=== PATIENT | female | born 1960 | race Caucasian/White ===

== ENCOUNTER → 2024-01-03 12:15 | Outpatient (REF) | payer BC, MEDICARE, SELFPAY ==
[2024-01-03 12:52] LABS: % Basophils 0.9 % (0-2); % Immature Granulocytes 0.3 % (0-0.5); % Lymphocytes 25.8 % (20.5-51.1); % Monocytes 5.8 % (1.7-9.3); % Neutrophils 66.2 % (42.2-75.2); Absolute Basophils 0.1 10^3/uL (0-0.2); Absolute Eosinophils 0.1 10^3/uL (0-0.7); Absolute Lymphocytes 1.8 10^3/uL (1.2-3.4); Absolute Monocytes 0.4 10^3/uL (0.1-0.6); Absolute Neutrophils 4.6 10^3/uL (1.4-6.5); Hematocrit 41.8 % (37.0-47.0); Hemoglobin 13.3 g/dL (12.0-16.0); Mean Corp Hgb Conc. 31.8 g/dL (33.0-37.0); Mean Corpuscular Hgb 28.1 pg (27.0-31.0); Mean Corpuscular Volume 88.2 fL (81.0-99.0); Nucleated Red Blood Cells % 0 %; Platelet Count 259 10^3/uL (130-400); Red Blood Cell Count 4.74 10^6/uL (4.20-5.40); Red Cell Dist. Width 12.2 % (11.5-14.5); White Blood Cell Count 6.9 10^3/uL (4.8-10.8)
[2024-01-03 13:22] LABS: ALT (SGPT) 41 U/L (0-35); AST (SGOT) 44 U/L (14-36); Alkaline Phosphatase 75 U/L (38-126); Blood Urea Nitrogen 11 mg/dl (7-17); Calcium 9.4 mg/dl (8.4-10.2); Carbon Dioxide 27 mmol/L (22-30); Chloride 102 mmol/L (98-107); Glucose 203 mg/dl (70-99); Potassium 3.8 mmol/L (3.5-5.1); Sodium 136 mmol/L (135-145); Total Bilirubin 1.7 mg/dl (0.2-1.3); Total Protein 6.2 g/dl (6.3-8.2); eGFR > 60.00
[2024-01-03 14:10] LABS: Glycohemoglobin (HgbA1c) 8.7 % (4.0-5.6)
[2024-01-03 14:20] LABS: Erythrocyte Sed Rate 19 mm/hour (0-20)
[2024-01-03 14:30] LABS: Vitamin D, 25-OH*** 23.1 ng/mL (30-80)
[2024-01-05 00:39] LABS: Complement C3 171 mg/dl (88-165)
[2024-01-05 07:23] LABS: ANA, IgG Reflex to HEp-2 None Detected (None Detected)
[2024-01-05 23:51] LABS: Quantiferon Mitogen minus NIL 8.15 IU/mL; Quantiferon NIL 0.02 IU/mL; Quantiferon TB Gold Plus Negative (Negative)
[2024-01-06 10:34] LABS: SSA 52 (Ro)(ENA) Ab, IgG 1 AU/mL (0-40); SSA 60 (Ro)(ENA) Ab, IgG 0 AU/mL (0-40); SSB (La)(ENA) Ab, IgG 0 AU/mL (0-40); Smith (ENA) Antibody, IgG 1 AU/mL (0-40)
== END ==
LOC: REG 12:15
PROVIDERS: ATTENDING PHYSICIAN Internal Medicine Rheumatology; FAMILY PHYSICIAN Family Medicine; REFERRING PHYSICIAN Internal Medicine Endocrinology, Diabetes & Metabolism
DX: M06.9 Rheumatoid arthritis, unspecified (principal); M32.9 Systemic lupus erythematosus, unspecified; M47.812 Spondylosis without myelopathy or radiculopathy, cervical region; E11.65 Type 2 diabetes mellitus with hyperglycemia
CPT/HCPCS: 36415; 80053; 82306; 83036; 85025; 85652; 86038; 86140; 86160; 86235; 86480

== ENCOUNTER → 2024-01-04 10:56 | Outpatient (REF) | payer BC, MEDICARE, SELFPAY ==
[2024-01-04 11:28] LABS: Urine Albumin Negative (Neg - Trace); Urine Bilirubin Negative (Negative); Urine Character Clear (Clear); Urine Color Yellow; Urine Glucose 1+ (Negative); Urine Ketone Negative (Negative); Urine Leukocyte Negative (Negative); Urine Nitrite Negative (Negative); Urine Occult Blood Negative (Negative); Urine Specific Gravity 1.015 (<1.030); Urine Urobilinogen Negative (Neg - 1+)
[2024-01-04 11:44] LABS: Urine Red Blood Cell 0-2 /HPF (0-2); Urine White Cell 0-2 /HPF (0-5)
== END ==
LOC: REG 10:56
PROVIDERS: ATTENDING PHYSICIAN Internal Medicine Rheumatology; FAMILY PHYSICIAN Family Medicine
DX: M06.9 Rheumatoid arthritis, unspecified (principal); M32.9 Systemic lupus erythematosus, unspecified; M47.812 Spondylosis without myelopathy or radiculopathy, cervical region
CPT/HCPCS: 81003; 81015

== ENCOUNTER → 2024-02-08 09:32 | Outpatient (REF) | payer BC, SELFPAY ==
[2024-02-08 11:13] LABS: ALT (SGPT) 50 U/L (0-35); AST (SGOT) 42 U/L (14-36); Albumin 4.4 g/dl (3.5-5.0); Alkaline Phosphatase 72 U/L (38-126); Blood Urea Nitrogen 8 mg/dl (7-17); Calcium 9.8 mg/dl (8.4-10.2); Carbon Dioxide 25 mmol/L (22-30); Chloride 104 mmol/L (98-107); Glucose 230 mg/dl (70-99); HDL Cholesterol 48 mg/dl; LDL Cholesterol, Calculated 124 mg/dl; Potassium 4.1 mmol/L (3.5-5.1); Sodium 139 mmol/L (135-145); Total Bilirubin 1.4 mg/dl (0.2-1.3); Total Cholesterol 213 mg/dl (50-199); Total Protein 6.7 g/dl (6.3-8.2); Triglyceride 208 mg/dl (10-149); Very Low Density Lipoprotein 41 mg/dl (0-30); eGFR > 60.00
[2024-02-08 11:42] LABS: TSH 0.94 uIU/ml (0.47-4.68)
[2024-02-08 12:15] LABS: Glycohemoglobin (HgbA1c) 8.5 % (4.0-5.6)
== END ==
LOC: REG 09:32
PROVIDERS: ATTENDING PHYSICIAN Family Medicine; REFERRING PHYSICIAN Internal Medicine Endocrinology, Diabetes & Metabolism
DX: E78.2 Mixed hyperlipidemia (principal); Z00.00 Encounter for general adult medical examination without abnormal findings; E11.65 Type 2 diabetes mellitus with hyperglycemia
CPT/HCPCS: 36415; 80053; 80061; 83036; 84443

== ENCOUNTER → 2024-04-19 14:45 | Outpatient (REF) | payer BC, SELFPAY ==
[2024-04-19 16:46] LABS: ALT (SGPT) 37 U/L (0-35); AST (SGOT) 31 U/L (14-36); Albumin 4.5 g/dl (3.5-5.0); Alkaline Phosphatase 90 U/L (38-126); Blood Urea Nitrogen 11 mg/dl (7-17); Calcium 9.7 mg/dl (8.4-10.2); Carbon Dioxide 26 mmol/L (22-30); Chloride 102 mmol/L (98-107); Glucose 202 mg/dl (70-99); Potassium 4.4 mmol/L (3.5-5.1); Sodium 139 mmol/L (135-145); Total Bilirubin 1.7 mg/dl (0.2-1.3); Total Protein 6.9 g/dl (6.3-8.2); eGFR > 60.00
[2024-04-20 09:45] LABS: Glycohemoglobin (HgbA1c) 8.3 % (4.0-5.6)
== END ==
LOC: REG 14:45
PROVIDERS: ATTENDING PHYSICIAN Internal Medicine Endocrinology, Diabetes & Metabolism; FAMILY PHYSICIAN Family Medicine
DX: E11.65 Type 2 diabetes mellitus with hyperglycemia (principal)
CPT/HCPCS: 36415; 80053; 83036

== ENCOUNTER → 2024-05-25 12:29 | Outpatient (REF) | payer MEDICARE, OTHER, SELFPAY ==
[2024-05-25 13:54] LABS: % Basophils 0.5 % (0-2); % Eosinophils 0.9 % (0-6); % Immature Granulocytes 0.4 % (0-0.5); % Lymphocytes 23.4 % (20.5-51.1); % Monocytes 4.4 % (1.7-9.3); % Neutrophils 70.4 % (42.2-75.2); Absolute Eosinophils 0.1 10^3/uL (0-0.7); Absolute Lymphocytes 1.9 10^3/uL (1.2-3.4); Absolute Monocytes 0.4 10^3/uL (0.1-0.6); Absolute Neutrophils 5.6 10^3/uL (1.4-6.5); Hematocrit 42.8 % (37.0-47.0); Mean Corp Hgb Conc. 32.7 g/dL (33.0-37.0); Mean Corpuscular Hgb 26.9 pg (27.0-31.0); Mean Corpuscular Volume 82.3 fL (81.0-99.0); Mean Platelet Volume 9.7 fL (7.4-10.4); Nucleated Red Blood Cells % 0 %; Platelet Count 309 10^3/uL (130-400); Red Cell Dist. Width 13.2 % (11.5-14.5); White Blood Cell Count 7.9 10^3/uL (4.8-10.8)
[2024-05-25 14:14] LABS: Erythrocyte Sed Rate 16 mm/hour (0-20)
[2024-05-25 14:27] LABS: Glycohemoglobin (HgbA1c) 8.2 % (4.0-5.6)
[2024-05-25 14:43] LABS: ALT (SGPT) 36 U/L (0-35); AST (SGOT) 31 U/L (14-36); Albumin 4.4 g/dl (3.5-5.0); Alkaline Phosphatase 84 U/L (38-126); Blood Urea Nitrogen 9 mg/dl (7-17); Calcium 9.5 mg/dl (8.4-10.2); Carbon Dioxide 25 mmol/L (22-30); Chloride 103 mmol/L (98-107); Glucose 193 mg/dl (70-99); Potassium 4.4 mmol/L (3.5-5.1); Sodium 139 mmol/L (135-145); Total Bilirubin 1.4 mg/dl (0.2-1.3); Total Protein 6.7 g/dl (6.3-8.2); eGFR > 60.00
[2024-05-27 23:01] LABS: Complement C3 201 mg/dl (88-165)
[2024-05-28 00:28] LABS: CCP Antibody IgG/IgA 4 Units (0-19)
== END ==
LOC: REG 12:29
PROVIDERS: ATTENDING PHYSICIAN Physician Assistant Surgical; FAMILY PHYSICIAN Family Medicine; REFERRING PHYSICIAN Internal Medicine Rheumatology
DX: M54.12 Radiculopathy, cervical region (principal); M54.2 Cervicalgia; I31.39 Other pericardial effusion (noninflammatory); M08.20 Juvenile rheumatoid arthritis with systemic onset, unspecified site; M32.9 Systemic lupus erythematosus, unspecified; E11.9 Type 2 diabetes mellitus without complications
CPT/HCPCS: 36415; 80053; 83036; 85025; 85652; 86140; 86146; 86160; 86200; 86225; 86235; 86430

== ENCOUNTER → 2024-07-30 15:48 | Outpatient (REF) | payer MEDICARE, OTHER, SELFPAY ==
[2024-07-30 16:24] LABS: % Basophils 0.5 % (0-2); % Eosinophils 0.7 % (0-6); % Immature Granulocytes 0.2 % (0-0.5); % Lymphocytes 25.3 % (20.5-51.1); % Monocytes 5.4 % (1.7-9.3); % Neutrophils 67.9 % (42.2-75.2); Absolute Eosinophils 0.1 10^3/uL (0-0.7); Absolute Lymphocytes 2.2 10^3/uL (1.2-3.4); Absolute Monocytes 0.5 10^3/uL (0.1-0.6); Absolute Neutrophils 5.8 10^3/uL (1.4-6.5); Hematocrit 47.9 % (37.0-47.0); Hemoglobin 15.3 g/dL (12.0-16.0); Mean Corp Hgb Conc. 31.9 g/dL (33.0-37.0); Mean Corpuscular Hgb 27.5 pg (27.0-31.0); Mean Corpuscular Volume 86.2 fL (81.0-99.0); Mean Platelet Volume 10.1 fL (7.4-10.4); Nucleated Red Blood Cells % 0 %; Platelet Count 360 10^3/uL (130-400); Red Blood Cell Count 5.56 10^6/uL (4.20-5.40); Red Cell Dist. Width 12.6 % (11.5-14.5); White Blood Cell Count 8.5 10^3/uL (4.8-10.8)
[2024-07-30 16:27] LABS: ALT (SGPT) 30 U/L (0-35); AST (SGOT) 28 U/L (14-36); Albumin 4.8 g/dl (3.5-5.0); Alkaline Phosphatase 85 U/L (38-126); Blood Urea Nitrogen 13 mg/dl (7-17); Calcium 9.5 mg/dl (8.4-10.2); Carbon Dioxide 25 mmol/L (22-30); Chloride 101 mmol/L (98-107); Glucose 214 mg/dl (70-99); Potassium 4.5 mmol/L (3.5-5.1); Sodium 142 mmol/L (135-145); Total Bilirubin 1.3 mg/dl (0.2-1.3); Total Protein 7.5 g/dl (6.3-8.2); eGFR > 60.00
[2024-07-31 08:38] LABS: Glycohemoglobin (HgbA1c) 7.7 % (4.0-5.6)
== END ==
LOC: CLAB 15:48
PROVIDERS: ATTENDING PHYSICIAN Physician Assistant Medical
DX: E11.65 Type 2 diabetes mellitus with hyperglycemia (principal)
CPT/HCPCS: 36415; 80053; 83036; 85025

== ENCOUNTER → 2024-08-15 07:24 | Outpatient (REF) | payer MEDICARE, BC, SELFPAY ==
[2024-08-15] MEDS: LEXISCAN 0.4 MG IV (09:36)
[2024-08-15] MEDS: FLUSH (NSS) 1 FLUSH IV (09:37)
[2024-08-15] MEDS: AMINOPHYLLINE 75 MG IV (09:37)
== END ==
LOC: RCS 07:24
PROVIDERS: ATTENDING PHYSICIAN Internal Medicine Cardiovascular Disease; FAMILY PHYSICIAN Family Medicine
DX: R07.89 Other chest pain (principal)
CPT/HCPCS: 78452; 93017; A9500; J2785

== ENCOUNTER → 2024-08-16 10:30 | Outpatient (REF) | payer MEDICARE, BC, SELFPAY | LOC: HWRCS 10:30 | PROVIDERS: ATTENDING PHYSICIAN Internal Medicine Cardiovascular Disease; FAMILY PHYSICIAN Family Medicine | DX: R06.02 Shortness of breath (principal) | CPT/HCPCS: 93306 ==

== ENCOUNTER 2024-08-22 06:01 | Inpatient (IN) | payer MEDICARE, BC, SELFPAY ==
[2024-08-08 10:51] LABS: Hematocrit 42.6 % (37.0-47.0); Hemoglobin 13.7 g/dL (12.0-16.0); Mean Corp Hgb Conc. 32.2 g/dL (33.0-37.0); Mean Corpuscular Hgb 27.3 pg (27.0-31.0); Mean Platelet Volume 9.6 fL (7.4-10.4); Platelet Count 285 10^3/uL (130-400); Red Blood Cell Count 5.01 10^6/uL (4.20-5.40); Red Cell Dist. Width 12.6 % (11.5-14.5); White Blood Cell Count 6.5 10^3/uL (4.8-10.8)
[2024-08-08 11:32] LABS: ALT (SGPT) 29 U/L (0-35); AST (SGOT) 23 U/L (14-36); Albumin 4.2 g/dl (3.5-5.0); Alkaline Phosphatase 65 U/L (38-126); Blood Urea Nitrogen 11 mg/dl (7-17); Calcium 9.2 mg/dl (8.4-10.2); Carbon Dioxide 27 mmol/L (22-30); Chloride 103 mmol/L (98-107); Glucose 186 mg/dl (70-99); Potassium 4.3 mmol/L (3.5-5.1); Sodium 140 mmol/L (135-145); Total Bilirubin 0.9 mg/dl (0.2-1.3); Total Protein 6.4 g/dl (6.3-8.2); eGFR > 60.00
[2024-08-08 13:54] VITALS: BMI 38.8
[2024-08-15 11:06] VITALS: BMI 38.8
[2024-08-22] VITALS (22 sets, daily range): BP systolic 134–161; BP diastolic 61–100; PULSE 81–88; O2SAT 98; BMI 38.8
--- NOTE | 2024-08-22 06:30 | PTCARENOTE ---
Patient states that she attempted suicide at 17 years old. Patient states she is feeling slightly depressed recently but no thoughts of suicide currently.
[2024-08-22] MEDS: SKELAXIN 800 MG PO ×3 (06:43→23:26)
[2024-08-22] MEDS: CELEBREX 200 MG PO (06:43)
[2024-08-22] MEDS: LYRICA 150 MG PO ×3 (06:43→21:05)
[2024-08-22] MEDS: TYLENOL 1000 MG PO ×4 (06:43→23:26)
[2024-08-22 06:46] LABS: Glucose - Point of Care 219 mg/dl (70-99)
[2024-08-22] MEDS: NORMOSOL-R/PLASMALYTE-A 1000 IV ×3 (07:08→23:31)
[2024-08-22 09:46] LABS: Glucose - Point of Care 235 mg/dl (70-99)
[2024-08-22] MEDS: NOVOLOG vial 2 UNITS SC (09:49)
[2024-08-22] MEDS: SUBLIMAZE 25 MCG IV ×2 (10:00→10:32)
[2024-08-22] MEDS: ZOFRAN 4 MG IV (10:29)
[2024-08-22 11:16] LABS: Glucose - Point of Care 266 mg/dl (70-99)
[2024-08-22] MEDS: OXYCONTIN (CONTROLLED RELEASE) 10 MG PO ×2 (11:34→23:26)
[2024-08-22] MEDS: NOVOLOG FLEXPEN SC (13:00)
[2024-08-22] MEDS: NOVOLOG FLEXPEN-MODERATE RESISTANCE SC (13:01)
[2024-08-22] MEDS: PEPCID PO (13:01)
[2024-08-22] MEDS: LYRICA PO (13:01)
[2024-08-22] MEDS: COLACE PO (13:01)
[2024-08-22] MEDS: SENOKOT PO (13:02)
[2024-08-22 13:09] LABS: Glucose - Point of Care 274 mg/dl (70-99)
[2024-08-22] MEDS: NOVOLOG FLEXPEN-MODERATE RESISTANCE 3 UNITS SC (13:32)
[2024-08-22] MEDS: NOVOLOG FLEXPEN 4 UNITS SC ×2 (13:33→16:43)
[2024-08-22] MEDS: LANTUS 0.22 UNITS SC (13:34)
[2024-08-22] MEDS: ANCEF 5 IV ×2 (16:29→23:26)
[2024-08-22] MEDS: FLUSH (NSS) 1 FLUSH IV (16:29)
[2024-08-22 16:44] LABS: Glucose - Point of Care 334 mg/dl (70-99)
[2024-08-22] MEDS: NOVOLOG FLEXPEN-MODERATE RESISTANCE 7 UNITS SC (16:44)
[2024-08-22] MEDS: ROXICODONE 10 MG PO (19:27)
[2024-08-22] MEDS: COLACE 100 MG PO (19:30)
[2024-08-22] MEDS: SENOKOT 17.2 MG PO (19:31)
[2024-08-22] MEDS: CARDIZEM 60 MG PO (21:05)
[2024-08-22] MEDS: ARMOUR THYROID 60 MG PO (21:05)
[2024-08-22 21:57] LABS: Glucose - Point of Care 307 mg/dl (70-99)
[2024-08-23] MEDS: ROXICODONE 10 MG PO (03:49)
[2024-08-23 03:51] VITALS: BP 129/66
--- NOTE | 2024-08-23 04:19 | DOWNTIME ---
There was a [employer] Client Family Assessment Worker Downtime on 08/23/2024 from 0200 to 08/23/2024 at 0325 . Downtime documentation of patient's care, including medication administrations, has been reconciled in the electronic record per guidelines. Refer to the
patient's paper chart under the miscellaneous tab to see printed paper medication records and downtime forms.
[2024-08-23 06:22] LABS: Hematocrit 39.9 % (37.0-47.0); Hemoglobin 12.5 g/dL (12.0-16.0)
[2024-08-23 06:51] LABS: Blood Urea Nitrogen 10 mg/dl (7-17); Calcium 8.3 mg/dl (8.4-10.2); Carbon Dioxide 23 mmol/L (22-30); Chloride 103 mmol/L (98-107); Estimated Creatinine Clearance 116 ml/min; Glucose 246 mg/dl (70-99); Potassium 4.6 mmol/L (3.5-5.1); Sodium 136 mmol/L (135-145); eGFR > 60.00
[2024-08-23] MEDS: SKELAXIN 800 MG PO (08:06)
[2024-08-23] MEDS: COLACE 100 MG PO (08:07)
[2024-08-23] MEDS: LYRICA 150 MG PO (08:07)
[2024-08-23] MEDS: PEPCID 40 MG PO (08:07)
[2024-08-23] MEDS: TYLENOL 1000 MG PO (08:07)
[2024-08-23] MEDS: SENOKOT 17.2 MG PO (08:08)
--- NOTE | 2024-08-23 08:08 | W.PN.ORTHO ---
Today's Communication / Plan
-
Await PT and OT recs.
D/c later today if remaining clinically stable.
Assessment
.
Distal Motor Intact: Yes
Dressing:
Clean, dry and intact.
Assessment:
Cervical stenosis s/p C4-C6 ACDF w/ Dr Olsen 08/22/24
DVT prophylaxis - b/l SCDs/TEDs
SVT, managed with Diltiazem - maintaining NSR on tele
Atypical CP, preprocedural echo and NST WNL - no CP reported POD 1
Asthma and TERRELL, noncompliance w/ CPAP - O2 stable on RA
- Resume inhaler prn
- Pt agreeable to CPAP last night. Applauded pt for reconsidering CPAP. She states she will try her best to be compliant w/ it at home
Insulin dependent diabetes, A1c 7.7 - BS readings initially elevated 2* surgical stress, IV steroids in OR, and holding of Mounjaro w/n 1 week of surgery
- BS readings showing improvement w/ standing 6 units AC of novolog, SSI, and increase in long acting insulin during admission
- I have confidence her BS readings will improve further w/ resumption of Mounjaro which she plans to resume upon d/c. The patient has been an insulin dependent diabetic since 2008 and follows her sugars b/f every meal. Is aware to talk to PCP
should BS readings continue to be elevated
- Will Rx Keflex for infection prevention
GERD - continue Pepcid
Chronic constipation - continue Dulcolax prn w/ Colace and Senna
Multilevel DDD
Dyslipidemia
H/o pericarditis, on Colchicine
Colon polyps
NAFLD
Migraines
Bal difficulties
DJD
RA
SLE
Hypothyroidism
Psoriasis
Spina bifida s/p surgical correction in infancy
Anxiety
Depression
Obesity, BMI 38.8
Plan
.
Surgery / Date: C4-C6 ACDF w/ Dr Olsen 08/22/24
DVT Prophylaxis: Other (b/l SCDs/TEDs)
Activity:
Out of bed.
PT/OT
Discharge Plan: Home
Subjective
.
.:
Patient examined resting in bed.
Issues with neck pain overnight, showing improvement with medication adjustments. Pt just medicated prior to my assessment.
Mild nausea but tolerable per pt.
Glucose elevated but not unexpected given holding of Mounjaro pre-op.
Eager for potential d/c today.
Vital Signs and Labs
.
Vital Signs and Labs:
Lab Results
08/23/24 05:30
08/23/24 05:30
Temp Pulse Resp BP Pulse Ox
98.3 F 74 20 129/66 94
08/23/24 03:51 08/23/24 03:51 08/23/24 03:51 08/23/24 03:51 08/23/24 03:51
Physical Exam
-
HEENT: No pallor, cyanosis, or jaundice. Throat clear.
NECK: Supple. No JVD.
RESPIRATORY: Lungs clear to auscultation.
CVS: S1, S2 normal. RRR.�
ABDOMEN: Soft, non-tender. No distension. Obese.
EXTREMITIES: Strength equal, no calf pain with palpation/dorsiflexion. Calves soft.
BOARD DESIGN ENGINEER: AOx3. No focal deficits. digital cartographic technician grossly intact
[2024-08-23 08:12] LABS: Glucose - Point of Care 234 mg/dl (70-99)
[2024-08-23 08:14] VITALS: BP 108/73
[2024-08-23] MEDS: NOVOLOG FLEXPEN-MODERATE RESISTANCE 3 UNITS SC (08:17)
[2024-08-23] MEDS: NORMOSOL-R/PLASMALYTE-A 1000 IV (08:24)
[2024-08-23] MEDS: NOVOLOG FLEXPEN SC (09:09)
[2024-08-23 10:11] VITALS: BP 154/76; PULSE 73; O2SAT 98
--- NOTE | 2024-08-23 10:38 | CM ---
Reviewed the chart notes and spoke with the patient and spouse at the bedside. Consult for VN received. Patient selected VN, referral sent via [facility]. Patient resides with her spouse in a two story home with two steps to enter. The patient
has a CPAP, stair glide, crutches, cane, and a rolling walker. The patient has had VN in past, but could not recall the name of the agency. The patient reports no SNF. The patient confirmed her pharmacy of choice is the [facility].
Frank. continues to be available to patient/family and is monitoring medical plan for needs at discharge.
Plan: Discharge to home with VN services.
[2024-08-23 11:44] VITALS: BP 143/70; PULSE 73; O2SAT 98
--- NOTE | 2024-08-23 11:55 | W.DS.TRANS ---
DC Summary - Marketing Reporting Analyst
-
Discharge Instructions:
Discharge Diagnosis/Procedures Cervical stenosis s/p C4-C6 ACDF w/ Olsen
08/05
Diet Diabetic, Carb Controlled
Activity As tolerated,With Walker
Additional Activity No heavy lifting >10 lbs
Driving Restrictions Not until seen by your Dr
Bathing Restrictions OK to shower in 4 days
Other Services VN
Instructions:
Stand-Alone Forms: Olsen Cervical D/C Inst.
Changes to Home Medications: Yes
Discharge Medications:
DC Medications w/original date entered in [facility]
cyanocobalamin (vitamin B-12) 1,000 mcg tablet 1,000 mcg PO DAILY 02/25/15
pyridoxine (vitamin B6) 50 mg tablet 50 mg PO DAILY 06/30/17
diltiazem HCl 60 mg tablet 60 mg PO BIDPRN PRN fast heart rate 09/05/18
cholecalciferol (vitamin D3) 50 mcg (2,000 unit) tablet 5,000 units PO DAILY 01/01/19
thyroid (pork) 60 mg tablet ([place] Thyroid) 60 mg PO HS 01/01/19
vitamin E (dl, acetate) 180 mg (400 unit) capsule 400 units PO BID 01/01/19
Cbd With Thc 1 gummy PO HS PRN sleep 11/11/23
famotidine 40 mg tablet 40 mg PO DAILY 11/11/23
pregabalin 50 mg capsule (Lyrica) 100 mg PO TID 11/11/23
Refresh Plus 1 drp BOTH EYES BID 08/15/24
albuterol sulfate 90 mcg/actuation aerosol inhaler 2 puff inhalation Q4HPRN PRN SHORTNESS OF BREATH 08/15/24
bisacodyl 10 mg rectal suppository (Dulcolax (bisacodyl)) 10 mg DC DAILY PRN constipation 08/15/24
dexamethasone 0.1 % eye drops,suspension 1 applic otic (ear) ONCE PRN pain 08/15/24
tirzepatide 7.5 mg/0.5 mL subcutaneous pen injector (Mounjaro) 7.5 mg SC QWEEK 08/15/24
Saccharomyces boulardii 250 mg capsule (Florastor) 250 mg PO BID #10 caps 08/23/24
acetaminophen 500 mg tablet (Tylenol Extra Strength) 1,000 mg (2 x 500 mg) PO QID #30 tabs 08/23/24
baclofen 5 mg tablet 5 mg PO BID PRN muscle spasms #10 tabs 08/23/24
cephalexin 500 mg capsule 500 mg PO Q6H #20 caps 08/23/24
colchicine 0.6 mg tablet (Colcrys) 0.6 mg PO DAILY PRN pericarditis #0 tabs 08/23/24
diltiazem HCl 60 mg tablet 60 mg PO HS #1 tab 08/23/24
docusate sodium 100 mg capsule 100 mg PO BID #30 caps 08/23/24
insulin glargine-yfgn 100 unit/mL (3 mL) subcutaneous pen (Semglee (insulin glargine-yfgn) Pen) 22 unit (0.22 mL) SC QPM #0 mL 08/23/24
insulin lispro 100 unit/mL subcutaneous cartridge (Humalog U-100 Insulin) 1 sliding scale dose SC DIRECTED PRN diabetes #0 mL 08/23/24
ondansetron HCl 4 mg tablet 4 mg PO Q6H PRN nausea and vomiting #30 tabs 08/23/24
oxycodone 10 mg tablet,crush resistant,extended release 12 hr (OxyContin) 10 mg PO Q12H chronic pain #15 tabs 08/23/24
oxycodone 5 mg tablet 5 - 10 mg (1 - 2 x 5 mg) PO Q6H PRN moderate-severe breakthrough pain #25 tabs 08/23/24
sennosides 8.6 mg tablet (Senna Laxative) 17.2 mg (2 x 8.6 mg) PO BID #30 tabs 08/23/24
Home Medication Changes
Saccharomyces boulardii 250 mg capsule (Florastor) 250 mg PO BID #10 caps 08/23/24
acetaminophen 500 mg tablet (Tylenol Extra Strength) 1,000 mg (2 x 500 mg) PO QID #30 tabs 08/23/24
baclofen 5 mg tablet 5 mg PO BID PRN muscle spasms #10 tabs 08/23/24
cephalexin 500 mg capsule 500 mg PO Q6H #20 caps 08/23/24
docusate sodium 100 mg capsule 100 mg PO BID #30 caps 08/23/24
insulin glargine-yfgn 100 unit/mL (3 mL) subcutaneous pen (Semglee (insulin glargine-yfgn) Pen) 22 unit (0.22 mL) SC QPM #0 mL 08/23/24 - increased from 15 units
insulin lispro 100 unit/mL subcutaneous cartridge (Humalog U-100 Insulin) 1 sliding scale dose SC DIRECTED PRN diabetes #0 mL 08/23/24
ondansetron HCl 4 mg tablet 4 mg PO Q6H PRN nausea and vomiting #30 tabs 08/23/24
oxycodone 10 mg tablet,crush resistant,extended release 12 hr (OxyContin) 10 mg PO Q12H chronic pain #15 tabs 08/23/24
oxycodone 5 mg tablet 5 - 10 mg (1 - 2 x 5 mg) PO Q6H PRN moderate-severe breakthrough pain #25 tabs 08/23/24
sennosides 8.6 mg tablet (Senna Laxative) 17.2 mg (2 x 8.6 mg) PO BID #30 tabs 08/23/24
Pending Results: No
[2024-08-23 12:09] LABS: Glucose - Point of Care 258 mg/dl (70-99)
--- NOTE | 2024-08-23 12:13 | VNURNOTE ---
Home Health Liaison met with patient and spouse at bedside to discuss [facility] nurse/therapy, visits, schedule and homebound status. Both are agreeable and understand that visits at home will be 2-3 x per week to assess and teach medical management.
[facility] brochure provided with contact information. Patient is aware that [facility] will contact them for start of care in 1-2 days after discharge from .
[facility] referral completed in [facility].
[2024-08-23] MEDS: OXYCONTIN (CONTROLLED RELEASE) 10 MG PO (12:15)
[2024-08-23] MEDS: NOVOLOG FLEXPEN 6 UNITS SC (12:16)
[2024-08-23] MEDS: NOVOLOG FLEXPEN-MODERATE RESISTANCE 5 UNITS SC (12:16)
== END 2024-08-23 13:42 | disposition home health service (06) | DRG 472 ==
LOC: 2 SOUTH 06:01
PROVIDERS: Physician Assistant Medical; ADMITTING PHYSICIAN Orthopaedic Surgery Orthopaedic Surgery of the Spine; FAMILY PHYSICIAN Family Medicine
PROC: 0RG20A0 Fusion of 2 or more Cervical Vertebral Joints with Interbody Fusion Device, Anterior Approach, Anterior Column, Open Approach (ICD-10-PCS; 2024-08-22)
PROC: 0RT30ZZ Resection of Cervical Vertebral Disc, Open Approach (ICD-10-PCS; 2024-08-22)
PROC: 00NW0ZZ Release Cervical Spinal Cord, Open Approach (ICD-10-PCS; 2024-08-22)
DX: M48.02 Spinal stenosis, cervical region (principal); I47.10 Supraventricular tachycardia, unspecified; M54.12 Radiculopathy, cervical region; E11.65 Type 2 diabetes mellitus with hyperglycemia; M32.10 Systemic lupus erythematosus, organ or system involvement unspecified; K76.0 Fatty (change of) liver, not elsewhere classified; K21.9 Gastro-esophageal reflux disease without esophagitis; I48.0 Paroxysmal atrial fibrillation; E03.9 Hypothyroidism, unspecified; G47.33 Obstructive sleep apnea (adult) (pediatric); Z79.4 Long term (current) use of insulin; Z79.85 Long-term (current) use of injectable non-insulin antidiabetic drugs; J45.909 Unspecified asthma, uncomplicated; K59.09 Other constipation; Z91.199 Patient's noncompliance with other medical treatment and regimen due to unspecified reason
CPT/HCPCS: 36415; 72020; 80048; 80053; 82962; 85014; 85018; 85027; 87070; 94660; 97116; 97162; 97166; 97530; C1713

== ENCOUNTER 2024-11-01 16:21 | Emergency (ER) | payer MEDICARE, BC, SELFPAY ==
[2024-11-01 16:32] VITALS: BMI 38.6
[2024-11-01 17:00] LABS: % Basophils 0.7 % (0-2); % Eosinophils 0.9 % (0-6); % Immature Granulocytes 0.3 % (0-0.5); % Lymphocytes 32.7 % (20.5-51.1); % Monocytes 6.4 % (1.7-9.3); Absolute Basophils 0.1 10^3/uL (0-0.2); Absolute Eosinophils 0.1 10^3/uL (0-0.7); Absolute Lymphocytes 3.8 10^3/uL (1.2-3.4); Absolute Monocytes 0.7 10^3/uL (0.1-0.6); Absolute Neutrophils 6.9 10^3/uL (1.4-6.5); Hematocrit 48.7 % (37.0-47.0); Hemoglobin 16.2 g/dL (12.0-16.0); Mean Corp Hgb Conc. 33.3 g/dL (33.0-37.0); Mean Corpuscular Hgb 27.7 pg (27.0-31.0); Mean Corpuscular Volume 83.2 fL (81.0-99.0); Mean Platelet Volume 10.1 fL (7.4-10.4); Nucleated Red Blood Cells % 0 %; Platelet Count 426 10^3/uL (130-400); Red Blood Cell Count 5.85 10^6/uL (4.20-5.40); Red Cell Dist. Width 13.3 % (11.5-14.5); White Blood Cell Count 11.6 10^3/uL (4.8-10.8)
[2024-11-01 17:26] LABS: ALT (SGPT) 66 U/L (0-35); AST (SGOT) 42 U/L (14-36); Albumin 5.2 g/dl (3.5-5.0); Alkaline Phosphatase 92 U/L (38-126); Blood Urea Nitrogen 11 mg/dl (7-17); Calcium 10.2 mg/dl (8.4-10.2); Carbon Dioxide 24 mmol/L (22-30); Chloride 99 mmol/L (98-107); Estimated Creatinine Clearance 96 ml/min; Glucose 168 mg/dl (70-99); Magnesium 2.2 mg/dl (1.6-2.3); Potassium 4.1 mmol/L (3.5-5.1); Sodium 137 mmol/L (135-145); Total Bilirubin 1.6 mg/dl (0.2-1.3); Total Protein 7.7 g/dl (6.3-8.2); eGFR > 60.00
[2024-11-01 17:30] VITALS: BP 109/78
[2024-11-01 17:33] LABS: D-Dimer 0.75 ug/mlFEU (0.00-0.50)
[2024-11-01 17:43] LABS: Troponin I < 0.012 ng/ml
[2024-11-01 18:00] VITALS: BP 118/76
--- NOTE | 2024-11-01 18:27 | ED.GENMED ---
History of Present Illness
General
Chief Complaint: Breathing Problem
Source: patient
Exam Limitations: none
Time Seen by Provider: 11/01/24 16:44
Nursing documentation reviewed up to this point in time: agreed with
History of Present Illness
History of Present Illness:
64-year-old female with a past medical history as noted significant for prior episodes of SVT presents to the emergency department for evaluation of shortness of breath, palpitations and racing heart. Patient reports that for a week or 2 she has
been more short of breath than usual and she has noted labile heart rate occasionally very high heart rate occasionally normal heart rate in the 60s. She says starting this morning at around 11 AM she had consistent severe symptoms of shortness of
breath and racing heart, palpitations as well as pressure in her chest. She says her heart rate was up over 200 and so she came to the ER for evaluation. She has had episodes of SVT in the past that presented similarly. She does note that she is
under treatment for pericarditis with colchicine; her trademark paralegal is Dr. Mcfadden.
Past History
Past History
ED Past Medical History: Arrthythmia (SVT), Asthma, GERD, NIDDM, Hypothyroidism and Other (Lupus, Pericardial effusion, PNA)
ED Past Surgical History: Other (Spina bifida)
Social History
Tobacco: Non-smoker
Alcohol: None
Drug: None
Personal:
Living: with family
Family History
Family History: Other (Brother with seizures, sister with autoimmune disease)
Review of Systems
Review of Systems
All Other Systems: ROS reviewed and negative except as documented in HPI and ROS
Constitutional: Reports fatigue; Denies fever
Respiratory: Reports trouble breathing; Denies cough
Cardiac: Reports chest pain and palpitations; Denies syncope
ABD/GI: Denies abdominal pain, nausea, vomiting or diarrhea
: Denies flank pain
Musculoskeletal: Denies edema
Neurological: Denies dizzy or headache
Phy Exam
Physical Exam
Physical Exam:
General: Awake, alert, oriented x3; anxious appearing
Head: Normocephalic, atraumatic
Eyes: Conjunctiva normal, EOMI
Throat: Airway intact, handling secretions
Neck: Trachea midline, no JVD
Lungs: Clear to auscultation bilaterally, no wheezing, rales, rhonchi
Heart: Tachycardia with regular rhythm, no murmurs, gallops, or rubs
Abd: Soft, non distended, nontender
Neuro: No gross deficits
Skin: no rash
Extremities: No edema in extremities, equal pulses in all extremities
Scores
Heart Failure Risk
Heart Failure Risk Score: Not Applicable
Heart Score for Chest Pain Patients
STEMI patient?: Not applicable
Withdrawal Assessment of Alcohol
Withdrawal Assessment Completed?: Not applicable
Course
Orders/Labs/Results
Orders:
Orders
11/01/24 16:23
Electrocardiogram (*1) Urgent
Reason for Study: Tachycardia
EKG- Treatment ONCE
11/01/24 16:30
Adenosine [Adenocard] 18 mg .ROUTE .STK-MED ONE
11/01/24 16:36
Electrocardiogram (*1) Urgent
Reason for Study: Chest Pain
EKG- Treatment ONCE
11/01/24 16:39
Complete Blood Count/With Diff Urgent
Comprehensive Metabolic Panel Urgent
Magnesium Urgent
11/01/24 16:44
TSH Reflex To Free T4 Urgent
11/01/24 17:11
D-Dimer Urgent
Troponin I Urgent
11/01/24 18:13
Electrocardiogram (*1) Urgent
Reason for Study: Bradycardia / Tachycardia
CT Chest PE Study Urgent
Comment:
Reason For Exam: sob, cp, tachycardia
EKG- Treatment ONCE
11/01/24 19:29
Add On- LAB Urgent
Tests Added?: tsh
Abnormal Lab Results
11/01/24 11/01/24
16:39 17:11
WBC 11.6 H 10^3/uL
(4.8-10.8)
RBC 5.85 H 10^6/uL
(4.20-5.40)
Hgb 16.2 H g/dL
(12.0-16.0)
Hct 48.7 H %
(37.0-47.0)
Plt Count 426 H 10^3/uL
(130-400)
Absolute Neuts (auto) 6.9 H 10^3/uL
(1.4-6.5)
Absolute Lymphs (auto) 3.8 H 10^3/uL
(1.2-3.4)
Absolute Monos (auto) 0.7 H 10^3/uL
(0.1-0.6)
D-Dimer 0.75 H ug/mlFEU
(0.00-0.50)
Glucose 168 H mg/dl
(70-99)
Total Bilirubin 1.6 H mg/dl
(0.2-1.3)
AST 42 H U/L
(14-36)
ALT 66 H U/L
(0-35)
Albumin 5.2 H g/dl
(3.5-5.0)
11/01/24 16:39
11/01/24 16:39
Vital Signs
Initial and Last Documented VS:
Initial Vital Signs
Pulse Resp
193 18
11/01/24 16:29 11/01/24 16:29
Last Documented Vital Signs
Pulse Resp BP Pulse Ox
98 10 118/76 98
11/01/24 18:00 11/01/24 18:00 11/01/24 18:00 11/01/24 18:00
MDM/Problems Addressed
Differential Diagnosis Includes:
Tachycardia: SVT, afib, aflutter, atrial tach
SOB: symptomatic arrhythmia, PE, pneumonia, anemia, anxiety
MDM/Problems Addressed:
64-year-old female presents for evaluation of shortness of breath, palpitations and chest pressure constant today but intermittent for the past few weeks associated with labile heart rate. She does have known history of SVT. She is undergoing
treatment for pericarditis with colchicine. She is tachycardic with heart rate in the 190s on arrival here. Normotensive. Rest of vitals normal including normal pulse ox and respiratory rate. Physical exam as above. Her EKG is concerning for
SVT. She was immediately brought back to room and placed on phys therapist. IV placed labs sent off including a CBC and a CMP. Will also check troponin given chest pressure as well as thyroid studies and D-dimer. Will check chest x-ray. She
was treated with adenosine x 1 dose and broke to a sinus tachycardia. Will continue to monitor on telemetry, provide some IV fluids. Reassess after the above.
Labs reviewed: CBC appears mildly hemoconcentrated. CMP no clinically significant abnormalities. Troponin undetectable. Her D-dimer is slightly positive. Will send for a CT of the chest�chest x-ray canceled. Continue to monitor. Her heart rate
has improved now in the 90s sinus rhythm. She says she is feeling much better essentially asymptomatic at rest here.
CT chest negative for PE or any other acute pathology. No pericardial effusion noted, no PE, no dissection. Patient has remained very well-appearing with stable vital signs since converting to sinus rhythm with adenosine. Suspect that her
symptoms recently have been from paroxysmal SVT. I think she is stable for discharge can follow-up with cardiology as an outpatient. She feels very comfortable with this plan. We spoke about return precautions all questions answered.
Chronic conditions affecting care:
SVT
*Radiology
Radiology exam reviewed: radiology read reviewed
*Pulse Oximetry
Patient hypoxic: no
*EKG
Interpreted by ED Provider?: Yes
Comparison EKG: changes noted (SVT )
Heart Rate: 189
Rate: tachycardiac
Rhythm: SVT
[place]: left axis deviation
Interval: normal interval
QRS Pattern: normal QRS
Ischemia: non-specific ST changes
*Critical Care Note
Total Time (30-74mins, 75-104mins- exclusive of procedures): 33
comment:
Critical care statement: A total of 33 minutes of critical care time was provided for this patient. This includes management of unstable vital signs, evaluation of the patient at bedside, frequent reassessment, discussion with
consultants/hospitalist, and review of pertinent medical records. This time was separate from time utilized to perform any aforementioned documented procedures
Data Reviewed
Review of Other/Old Records Reveals: Labs and Records
Source: patient and records
ED Attending Note
-
Portions of this chart may have been created with voice recognition software.� Occasional wrong word or��sound alike� substitutions may have occurred due to the inherent limitations of voice recognition software.
Discharge Plan
Departure
Patient with high blood pressure during this ER visit?: No
Discharge Problem:
SVT (supraventricular tachycardia)
Instructions: Supraventricular tachycardia (SVT), Chest Pain DCA Follow Up
Prescriptions:
No Action
cyanocobalamin (vitamin B-12) 1,000 MCG tablet
1,000 mcg PO DAILY
pyridoxine (vitamin B6) 50 MG tablet
50 mg PO DAILY
diltiazem HCl 60 MG tablet
60 mg PO BIDPRN PRN (Reason: fast heart rate)
cholecalciferol (vitamin D3) 2,000 UNITS tablet
5,000 units PO DAILY
vitamin E (dl, acetate) 400 UNITS capsule
400 units PO BID
thyroid (pork) [[place] Thyroid] 60 MG tablet
60 mg PO HS
famotidine 40 mg Tablet
40 mg PO DAILY
pregabalin [Lyrica] 50 mg Capsule
100 mg PO TID
Cbd With Thc
1 gummy PO HS PRN (Reason: sleep)
albuterol sulfate 1 PUFF HFA aerosol inhaler
2 puff inhalation Q4HPRN PRN (Reason: SHORTNESS OF BREATH)
Rx Instructions:
WITH SPACER DEVICE
dexamethasone 0.1 % Drops,Suspension
1 applic OTIC (EAR) ONCE PRN (Reason: pain)
Mounjaro 7.5 mg/0.5 mL Pen Injector
7.5 mg SC QWEEK
Refresh Plus
1 drp BOTH EYES BID
bisacodyl [Dulcolax (bisacodyl)] 10 mg Suppository
10 mg VT DAILY PRN (Reason: constipation)
docusate sodium 100 mg Capsule
100 mg PO BID Qty: 30 0RF
diltiazem HCl 60 mg Tablet
60 mg PO HS Qty: 1 0RF
oxycodone [OxyContin] 10 mg Tablet,Oral Only,Ext.Rel.12 Hr
10 mg PO Q12H Qty: 15 0RF
Rx Instructions:
Take every 12 hours for 5 days, then once daily for 5 days, then STOP.
sennosides [Senna Laxative] 8.6 mg Tablet
17.2 mg PO BID Qty: 30 0RF
acetaminophen [Tylenol Extra Strength] 500 mg Tablet
1,000 mg PO QID Qty: 30 0RF
Rx Instructions:
DO NOT exceed >4000 mg daily.
ondansetron HCl 4 mg tablet
4 mg PO Q6H PRN (Reason: nausea and vomiting) Qty: 30 0RF
oxycodone 5 mg tablet
5 - 10 mg PO Q6H PRN (Reason: moderate-severe breakthrough pain) Qty: 25 0RF
Rx Instructions:
1 tab for moderate, 2 if severe pain
baclofen 5 mg tablet
5 mg PO BID PRN (Reason: muscle spasms) Qty: 10 0RF
Rx Instructions:
Caution with Oxycodone and Oxycontin - can cause drowsiness.
Take only as directed.
cephalexin 500 mg capsule
500 mg PO Q6H Qty: 20 0RF
Saccharomyces boulardii [Florastor] 250 mg capsule
250 mg PO BID Qty: 10 0RF
Rx Instructions:
Over the counter. Take while on antibiotic.
If unavailable, choose a different probiotic.
colchicine [Colcrys] 0.6 MG tablet
0.6 mg PO DAILY PRN (Reason: pericarditis) Qty: 0 0RF
insulin glargine-yfgn [Semglee(insulin glarg-yfgn)Pen] 100 unit/mL (3 mL) Insulin Pen
22 unit SC QPM Qty: 0 0RF
Rx Instructions:
Increase to 22 units nightly given elevated blood sugar readings post-op.
Humalog U-100 Insulin 100 unit/mL Cartridge
1 sliding scale dose SC DIRECTED PRN (Reason: diabetes) Qty: 0 0RF
Patient Comments:
Pt adjusts as needed
Referrals:
Julian Mcfadden, [Active] - Call in 1-3 days for appt
Activity Restrictions/Additional Instructions:
Thank you for visiting the Emergency Department at [facility].
1. Please schedule a follow up appointment as directed. Call first thing tomorrow morning to make an appointment.
2. If indicated, please take your medications as instructed and indicated on discharge paperwork.
3. If any of your symptoms do not improve, or persist, or become more severe within 6-12 hours, please return to the emergency department for further care.
4. Please return to the emergency department if you develop a headache, neck pain/stiffness, fever greater than 100.4F, chest pain, shortness of breath, persistent nausea, vomiting, slurred speech, difficulty walking, numbness/tingling, weakness,
signs of infection or any other symptoms that are worrisome to you.
Please call [phone] if you have any questions.
Interventions
Interventions:
*Risk Screen - Suicide Last Done: 11/01/24 16:31
*General Assessment Last Done: 11/01/24 16:31
*Neglect/Abuse Screening Last Done: 11/01/24 16:31
ED- Fall Risk Assessment Last Done: 11/01/24 16:33
*ED COVID-19 Vaccine History Last Done: 11/01/24 16:32
ED- Cardiac Assessment Last Done: 11/01/24 16:33
ED- Pulmonary Assessment Last Done: 11/01/24 16:33
Discharge Date and Time
Print Language: PANAMANIAN
[2024-11-01 20:36] LABS: TSH Reflex To Free T4 1.69 uIU/ml (0.47-4.68)
== END 2024-11-01 20:03 | disposition home or self-care (01) ==
LOC: EMR 16:21
PROVIDERS: EMERGENCY PHYSICIAN Emergency Medicine
DX: I47.10 Supraventricular tachycardia, unspecified (principal); J45.909 Unspecified asthma, uncomplicated; K21.9 Gastro-esophageal reflux disease without esophagitis; E11.9 Type 2 diabetes mellitus without complications; E03.9 Hypothyroidism, unspecified; Q05.9 Spina bifida, unspecified
CPT/HCPCS: 99284; 71275; 80053; 83735; 84443; 84484; 85025; 85379; 93005; J0153; Q9967

== ENCOUNTER → 2024-11-13 13:12 | Outpatient (REF) | payer MEDICARE, BC, SELFPAY ==
[2024-11-13 14:33] LABS: ALT (SGPT) 40 U/L (0-35); AST (SGOT) 26 U/L (14-36); Albumin 4.4 g/dl (3.5-5.0); Alkaline Phosphatase 84 U/L (38-126); Blood Urea Nitrogen 14 mg/dl (7-17); Calcium 9.7 mg/dl (8.4-10.2); Carbon Dioxide 28 mmol/L (22-30); Chloride 101 mmol/L (98-107); Glucose 187 mg/dl (70-99); Potassium 4.4 mmol/L (3.5-5.1); Sodium 136 mmol/L (135-145); Total Bilirubin 1.3 mg/dl (0.2-1.3); Total Protein 6.8 g/dl (6.3-8.2); eGFR > 60.00
[2024-11-14 08:31] LABS: Glycohemoglobin (HgbA1c) 8.3 % (4.0-5.6)
== END ==
LOC: RAD 13:12
PROVIDERS: ATTENDING PHYSICIAN Internal Medicine Endocrinology, Diabetes & Metabolism; FAMILY PHYSICIAN Family Medicine
DX: E11.65 Type 2 diabetes mellitus with hyperglycemia (principal)
CPT/HCPCS: 36415; 80053; 83036

== ENCOUNTER → 2024-11-16 11:34 | Outpatient (REF) | payer MEDICARE, BC, SELFPAY ==
[2024-11-16 12:55] LABS: % Basophils 0.7 % (0-2); % Eosinophils 1.1 % (0-6); % Immature Granulocytes 0.6 % (0-0.5); % Lymphocytes 29.3 % (20.5-51.1); % Monocytes 5.2 % (1.7-9.3); % Neutrophils 63.1 % (42.2-75.2); Absolute Basophils 0.1 10^3/uL (0-0.2); Absolute Eosinophils 0.1 10^3/uL (0-0.7); Absolute Lymphocytes 2.1 10^3/uL (1.2-3.4); Absolute Monocytes 0.4 10^3/uL (0.1-0.6); Absolute Neutrophils 4.5 10^3/uL (1.4-6.5); Hematocrit 42.4 % (37.0-47.0); Hemoglobin 13.9 g/dL (12.0-16.0); Mean Corp Hgb Conc. 32.8 g/dL (33.0-37.0); Mean Corpuscular Hgb 27.2 pg (27.0-31.0); Mean Platelet Volume 10.4 fL (7.4-10.4); Nucleated Red Blood Cells % 0 %; Platelet Count 212 10^3/uL (130-400); Red Blood Cell Count 5.11 10^6/uL (4.20-5.40); Red Cell Dist. Width 13.2 % (11.5-14.5); White Blood Cell Count 7.1 10^3/uL (4.8-10.8)
[2024-11-16 13:06] LABS: ALT (SGPT) 39 U/L (0-35); AST (SGOT) 28 U/L (14-36); Alkaline Phosphatase 92 U/L (38-126); Blood Urea Nitrogen 13 mg/dl (7-17); Carbon Dioxide 24 mmol/L (22-30); Chloride 101 mmol/L (98-107); Glucose 205 mg/dl (70-99); Potassium 4.2 mmol/L (3.5-5.1); Sodium 137 mmol/L (135-145); Total Bilirubin 1.6 mg/dl (0.2-1.3); Total Protein 7.5 g/dl (6.3-8.2); eGFR > 60.00
[2024-11-16 13:23] LABS: Erythrocyte Sed Rate 6 mm/hour (0-20)
[2024-11-16 13:36] LABS: TSH 1.48 uIU/ml (0.47-4.68)
[2024-11-19 07:29] LABS: ANA, IgG Reflex to HEp-2 None Detected (None Detected)
== END ==
LOC: REG 11:34
PROVIDERS: ATTENDING PHYSICIAN Internal Medicine Endocrinology, Diabetes & Metabolism; FAMILY PHYSICIAN Family Medicine; REFERRING PHYSICIAN Internal Medicine Rheumatology
DX: E11.65 Type 2 diabetes mellitus with hyperglycemia (principal); E06.3 Autoimmune thyroiditis; R61 Generalized hyperhidrosis; G95.9 Disease of spinal cord, unspecified; I31.39 Other pericardial effusion (noninflammatory); K76.0 Fatty (change of) liver, not elsewhere classified; M32.9 Systemic lupus erythematosus, unspecified; M47.812 Spondylosis without myelopathy or radiculopathy, cervical region
CPT/HCPCS: 36415; 80053; 83835; 84443; 85025; 85652; 86038; 86140; 86200; 86225; 86235; 86430

== ENCOUNTER → 2024-11-19 15:09 | Outpatient (REF) | payer MEDICARE, BC, SELFPAY | LOC: HWRAD 15:09 | PROVIDERS: ATTENDING PHYSICIAN Internal Medicine Endocrinology, Diabetes & Metabolism; FAMILY PHYSICIAN Family Medicine; REFERRING PHYSICIAN Internal Medicine Rheumatology | DX: E06.3 Autoimmune thyroiditis (principal) | CPT/HCPCS: 76536 ==

== ENCOUNTER → 2025-01-16 11:29 | Outpatient (REF) | payer MEDICARE, BC, SELFPAY ==
[2025-01-16 13:46] LABS: % Basophils 0.5 % (0-2); % Eosinophils 0.4 % (0-6); % Immature Granulocytes 0.5 % (0-0.5); % Lymphocytes 15.4 % (20.5-51.1); % Monocytes 4.7 % (1.7-9.3); % Neutrophils 78.5 % (42.2-75.2); Absolute Basophils 0.1 10^3/uL (0-0.2); Absolute Eosinophils 0.1 10^3/uL (0-0.7); Absolute Immature Granulocytes 0.1 10^3/uL (0-0.05); Absolute Lymphocytes 2.2 10^3/uL (1.2-3.4); Absolute Monocytes 0.7 10^3/uL (0.1-0.6); Absolute Neutrophils 11.4 10^3/uL (1.4-6.5); Hemoglobin 14.9 g/dL (12.0-16.0); Mean Corp Hgb Conc. 33.1 g/dL (33.0-37.0); Mean Corpuscular Hgb 27.9 pg (27.0-31.0); Mean Corpuscular Volume 84.3 fL (81.0-99.0); Mean Platelet Volume 9.8 fL (7.4-10.4); Nucleated Red Blood Cells % 0 %; Platelet Count 317 10^3/uL (130-400); Red Blood Cell Count 5.34 10^6/uL (4.20-5.40); Red Cell Dist. Width 13.1 % (11.5-14.5); White Blood Cell Count 14.6 10^3/uL (4.8-10.8)
[2025-01-16 14:00] LABS: INR 0.89; PT 12.5 Sec (11.4-14.6)
[2025-01-16 14:42] LABS: Blood Urea Nitrogen 16 mg/dl (7-17); Glucose 199 mg/dl (70-99); Sodium 137 mmol/L (135-145); eGFR > 60.00
[2025-01-16 14:43] LABS: ALT (SGPT) 31 U/L (0-35); AST (SGOT) 22 U/L (14-36); Albumin 4.8 g/dl (3.5-5.0); Alkaline Phosphatase 91 U/L (38-126); Calcium 9.9 mg/dl (8.4-10.2); Carbon Dioxide 27 mmol/L (22-30); Chloride 98 mmol/L (98-107); Magnesium 2.2 mg/dl (1.6-2.3); Potassium 4.2 mmol/L (3.5-5.1); Total Bilirubin 1.3 mg/dl (0.2-1.3); Total Protein 7.1 g/dl (6.3-8.2)
== END ==
LOC: SDSPAT 11:29
PROVIDERS: ATTENDING PHYSICIAN Internal Medicine Cardiovascular Disease; FAMILY PHYSICIAN Family Medicine; OTHER PHYSICIAN Nuclear Medicine Nuclear Cardiology
DX: I47.10 Supraventricular tachycardia, unspecified (principal)
CPT/HCPCS: 36415; 80053; 83735; 85025; 85610; 93005

== ENCOUNTER → 2025-01-18 12:30 | Outpatient (REF) | payer MEDICARE, BC, SELFPAY | LOC: RAD 12:30 | PROVIDERS: ATTENDING PHYSICIAN Nurse Practitioner Family; FAMILY PHYSICIAN Family Medicine | DX: R61 Generalized hyperhidrosis (principal) | CPT/HCPCS: 71046 ==

== ENCOUNTER 2025-01-30 07:50 | Day surgery (SDC) | payer MEDICARE, BC, SELFPAY ==
[2025-01-16 13:06] VITALS: BMI 36.8
[2025-01-30] VITALS (17 sets, daily range): BP systolic 91–145; BP diastolic 47–78
[2025-01-30 09:30] LABS: Glucose - Point of Care 202 mg/dl (70-99)
--- NOTE | 2025-01-30 10:35 | ITS.CL.ABL ---
Weapons Engineer - Ablation
Ablation
Procedure Report:
ELECTROPHYSIOLOGIC STUDY AND POSSIBLE ABLATION
Procedure Date: January 30, 2025
Primary Care Provider: Dr Adriana Squires
Primary patrol lady: Dr Julian Mcfadden
INDICATION: Supraventricular tachycardia, palpitations
HISTORY:
Her tachycardia symptoms have been present for at least 7 years and accelerating over the past 1 year.
She has required several visits to the emergency department for intravenous adenosine which is abruptly terminated her tachycardia.� I reviewed ECG from November 01, 2024 emergency department visit showing narrow QRS complex tachycardia at 190 bpm
with no clearly discernible P waves.� After adenosine ECG shows normal sinus rhythm at 96 bpm.
'Time-out' was called and confirmed.
Presenting rhythm: Sinus rhythm
PROCEDURE:
Ultrasound Guidance with real-time visualization of needle insertion and vessel patency performed by me for femoral venous Vascular Access.
Under real-time US guidance, the needle was advanced with negative pressure into the vein. The needle was seen entering the vessel lumen with a good return of dark red flow, the syringe was removed, non-pulsatile, dark red blood low was noted and
the wire was passed without difficulty, then the needle was removed. US confirmed the wire was in the vein, not going into an artery,
Images were taken and saved for the patient's permanent record. Imaging findings typical femoral venous anatomy. Direct visualization of needle puncture into the femoral vein was observed and recorded.
Multipolar recording catheters were positioned at the HRA, RVA, His bundle and CS (for left atrial recording/mapping).
Mapping, recording and pacing were performed from these sites.
Baseline measurements were recorded and analyzed. Antegrade and retrograde AV marylin Wenckebach CLs were obtained.
Programmed electrical stimulation was performed. Premature extrastimuli were delivered from the HRA, CS and RVA catheters.
Burst atrial pacing was also performed from HRA and LA (CS) sites.
SVT at CL = 380 ms was induced by both burst atrial pacing as well as delivery of atrial decremental extrastimuli.
Evidence for typical AV Marylin Reentry as the tachycardia diagnosis included: (1) A concentric midline atrial activation sequence during SVT, (2) ventricular pacing from the RVA showed earliest retrograde atrial activation to be midline, matching
that seen during SVT, (3) Atrial activation during SVT began within the first 70ms of the QRS complex excluding AVRT and making AT unlikely, (4) Initiation of SVT was dependent on a critical AH interval (slow pathway engagement), (5) Ventricular
pacing at a CL 20-30 ms faster than the SVT CL during the SVT demonstrated advancement of the atrial electrogram to the pacing CL and when pacing was terminated, a V-A-V pattern with continuation of SVT was observed practically excluding AT as the
SVT mechanism
SVT could be terminated by burst V pacing.
SVT was well-tolerated hemodynamically.
Radiofrequency Catheter Ablation:
Following determination of the SVT mechanism, isoproterenol was discontinued and baseline conditions were resumed. [employer] 3-D mapping system was used to assist in mapping/targeting ablation site(s.)
The AV marylin slow pathway was mapped and targeted with RF energy using a 4 mm tip non-irrigated mapping/ablation catheter. RF application resulted in brief accelerated junctional rhythm with no AV delay or heart block observed.
PES stimulation was repeated and were jumps with single AV marylin echoes observed but no SVT, marked contrast to the preablation situation.
After a 20 minute waiting period, stimulation was repeated and no sustained SVT could be induced.
COMPLICATIONS: None
SUMMARY:
EPS with Coronary Sinus Catheter
SVT mapping and ablation
3-D mapping
Ultrasound guided vascular access.
RECOMMENDATIONS:
Stop Cardizem
Copy to:
Dr Adriana Squires
Dr Julian Mcfadden
[2025-01-30] MEDS: ROXICODONE 10 MG PO (13:08)
== END 2025-01-30 17:00 | disposition home or self-care (01) ==
LOC: CATH 07:50
PROVIDERS: ATTENDING PHYSICIAN Internal Medicine Cardiovascular Disease; FAMILY PHYSICIAN Family Medicine; OTHER PHYSICIAN Nuclear Medicine Nuclear Cardiology
DX: I47.10 Supraventricular tachycardia, unspecified (principal); E03.9 Hypothyroidism, unspecified; E11.42 Type 2 diabetes mellitus with diabetic polyneuropathy; E66.9 Obesity, unspecified; E78.5 Hyperlipidemia, unspecified; G47.33 Obstructive sleep apnea (adult) (pediatric); I45.10 Unspecified right bundle-branch block; I49.8 Other specified cardiac arrhythmias; J45.909 Unspecified asthma, uncomplicated; K76.0 Fatty (change of) liver, not elsewhere classified; M06.9 Rheumatoid arthritis, unspecified; M32.9 Systemic lupus erythematosus, unspecified; M79.7 Fibromyalgia; Q05.9 Spina bifida, unspecified; Z79.4 Long term (current) use of insulin; Z79.52 Long term (current) use of systemic steroids; Z86.0100 Personal history of colon polyps, unspecified; Z79.899 Other long term (current) drug therapy; Z79.890 Hormone replacement therapy
CPT/HCPCS: C1730; C1733; C1894; C1766; 82962; 93005; 93623; 93653; C1760

== ENCOUNTER → 2025-03-11 14:06 | Outpatient (REF) | payer MEDICARE, BC, SELFPAY ==
[2025-03-11 15:21] LABS: ALT (SGPT) 28 U/L (0-35); AST (SGOT) 24 U/L (14-36); Albumin 4.9 g/dl (3.5-5.0); Alkaline Phosphatase 85 U/L (38-126); Blood Urea Nitrogen 11 mg/dl (7-17); Calcium 10.1 mg/dl (8.4-10.2); Carbon Dioxide 28 mmol/L (22-30); Chloride 106 mmol/L (98-107); Glucose 163 mg/dl (70-99); Potassium 4.9 mmol/L (3.5-5.1); Sodium 142 mmol/L (135-145); Total Bilirubin 1.5 mg/dl (0.2-1.3); Total Protein 7.8 g/dl (6.3-8.2); eGFR > 60.00
[2025-03-11 15:55] LABS: TSH 0.27 uIU/ml (0.47-4.68)
[2025-03-12 09:03] LABS: Glycohemoglobin (HgbA1c) 8.6 % (4.0-5.6)
== END ==
LOC: REG 14:06
PROVIDERS: ATTENDING PHYSICIAN Internal Medicine Endocrinology, Diabetes & Metabolism; FAMILY PHYSICIAN Family Medicine
DX: E11.65 Type 2 diabetes mellitus with hyperglycemia (principal); E06.3 Autoimmune thyroiditis; R61 Generalized hyperhidrosis
CPT/HCPCS: 36415; 80053; 83036; 84443

== ENCOUNTER → 2025-04-30 07:20 | Outpatient (REF) | payer MEDICARE, BC, SELFPAY ==
--- NOTE | 2025-05-01 13:55 | EEG.RPT ---
Electroencephalogram Report
Recording
Date of EE04/30/25
Type of EEG: Routine
Length of EEG recordin minutes
Done with Video Recording: Yes
Patient Status: Outpatient
Recording Conditions: Awake and Drowsy
Hyperventilation Performed: Yes
Photic Stimulation Performed: Yes
Report
GREATER THAN 1 HOUR REPORT
GREATER THAN 1 HOUR EEG INTERPRETATION:
Moderately abnormal EEG for age in wakefulness through drowsiness due to the above mentioned frontally predominant generalizing change
CLINICAL CORRELATION:
This study was suggestive of a generalizing abnormality of the cortex which is not known to correlate with epileptiform activity. No seizures were recorded during the study. Clinical correlation is advised.
METHODS:
A 21 channel digitized electroencephalogram (EEG) was performed in the clinical neurophysiology lab. The 10/20 international system of electrode placement was used with ECG and lateral/vertical eye movements recorded. Video was recorded. Persyst
quantitative EEG analysis was utilized.
ELECTROENCEPHALOGRAPHER IMPRESSION(S):
Quality of study
Good
Background
There was an unremarkable, well maintained, medium amplitude alpha-frequency and unremarkable anterior-posterior voltage gradient
With eye opening the background activity changed to a low voltage mixture of frequencies.
Sleep
Drowsiness present
Hyperventilation
Increased the frequency of the below mentioned FIRDA
Photic Stimulation
Failed to activate the record.
ECG
Normal sinus rhythm
Abnormal Findings
In drowsiness was frequent bursts lasting up to 8 seconds, typically 1 to 2 seconds, of generalizing frontal intermittent rhythmic delta activity (FIRDA) of minimally varying high amplitudes
== END ==
LOC: EEG 07:20
PROVIDERS: ATTENDING PHYSICIAN Registered Nurse Critical Care Medicine; FAMILY PHYSICIAN Family Medicine; REFERRING PHYSICIAN Internal Medicine Rheumatology
DX: R41.3 Other amnesia (principal)
CPT/HCPCS: 95813

== ENCOUNTER → 2025-06-07 14:57 | Outpatient (REF) | payer MEDICARE, BC, SELFPAY | LOC: CLAB 14:57 | PROVIDERS: ATTENDING PHYSICIAN Orthopaedic Surgery | DX: R22.32 Localized swelling, mass and lump, left upper limb (principal) | CPT/HCPCS: 88304 ==

== ENCOUNTER → 2025-07-17 13:31 | Outpatient (REF) | payer MEDICARE, BC, SELFPAY | LOC: HWRAD 13:31 | PROVIDERS: ATTENDING PHYSICIAN Obstetrics & Gynecology; FAMILY PHYSICIAN Family Medicine | DX: Z78.0 Asymptomatic menopausal state (principal); Z12.31 Encounter for screening mammogram for malignant neoplasm of breast | CPT/HCPCS: 77063; 77067; 77080 ==

== ENCOUNTER → 2025-07-24 08:57 | Outpatient (REF) | payer MEDICARE, BC, SELFPAY | LOC: WDC 08:57 | PROVIDERS: ATTENDING PHYSICIAN Obstetrics & Gynecology; FAMILY PHYSICIAN Family Medicine | DX: R92.8 Other abnormal and inconclusive findings on diagnostic imaging of breast (principal) | CPT/HCPCS: 76642 ==

== ENCOUNTER 2025-07-28 15:56 | Emergency (ER) | payer MEDICARE, BC, SELFPAY ==
[2025-07-28] VITALS (7 sets, daily range): BP systolic 86–142; BP diastolic 64–82; PULSE 79–104
[2025-07-28 16:25] LABS: Hematocrit 45.3 % (37.0-47.0); Hemoglobin 14.5 g/dL (12.0-16.0); Mean Corp Hgb Conc. 32.0 g/dL (33.0-37.0); Mean Corpuscular Volume 86.3 fL (81.0-99.0); Nucleated Red Blood Cells % 0 %; Platelet Count 320 10^3/uL (130-400); Red Cell Dist. Width 13.5 % (11.5-14.5)
[2025-07-28 16:39] LABS: ALT (SGPT) 36 U/L (0-35); AST (SGOT) 30 U/L (14-36); Albumin 4.7 g/dl (3.5-5.0); Alkaline Phosphatase 67 U/L (38-126); Blood Urea Nitrogen 10 mg/dl (7-17); Calcium 10.2 mg/dl (8.4-10.2); Carbon Dioxide 29 mmol/L (22-30); Chloride 101 mmol/L (98-107); Glucose 124 mg/dl (70-99); Potassium 4.1 mmol/L (3.5-5.1); Sodium 136 mmol/L (135-145); Total Protein 7.5 g/dl (6.3-8.2); eGFR > 60.00
[2025-07-28 16:52] LABS: Troponin I < 0.012 ng/ml
--- NOTE | 2025-07-28 18:21 | ED.GENMED ---
History of Present Illness
General
Chief Complaint: Chest Pain
Source: patient
Exam Limitations: none
Time Seen by Provider: 07/28/25 18:22
Nursing documentation reviewed up to this point in time: agreed with
History of Present Illness
History of Present Illness:
64 yo female with h/o psoriatic arthritis, lupus, rheumatoid arthritis, depression, presents for episodes of dizziness, feeling imbalanced, 'just not feeling well,'
Yesterday noon, moving clothes from washer to dryer, turned to her right, lost balance and fell onto pile of laundry, no injury. Fell 'off balance all day.' Slept well last night. Woke 11 a.m today felt well, got washed and felt better than
yesterday but still feels imbalanced and fatigued.
2 weeks ago had to stop her Methotrexate and Saphnelo infusion due to getting her Covid and Flu vaccines. She was started on Wellbutrin 5 days ago With all these med changes, she feels this may be contributing to her symptoms.
Denies recent head injury, denies headache or change in vision. Has felt nauseous, received Zofran by EMS en route. Has not vomited.
Past History
Past History
ED Past Medical History: Arrthythmia (SVT), Asthma, GERD, NIDDM, Hypothyroidism and Other (Lupus, Pericardial effusion, PNA)
ED Past Surgical History: Other (Spina bifida)
Social History
Tobacco: Non-smoker
Alcohol: None
Drug: None
Personal:
Living: with family
Family History
Family History: Other (Brother with seizures, sister with autoimmune disease)
Phy Exam
Physical Exam
Physical Exam:
GENERAL: No acute distress. A&Ox3.
CONSTITUTIONAL: Afebrile.
EYES: clear, conjunctivae normal
ENMT: moist mucus membranes, Pharynx nl
RESPIRATORY: Regular respirations, nonlabored, lungs clear.
CARDIOVASCULAR: Regular rate and rhythm, no murmurs, no rubs.
GI: Soft, nontender, normal BS
MUSCULOSKELETAL: Moves with ease. Well perfused.
SKIN: Warm, dry, pink
PSYCH: Normal mood and affect. Well kept, interactive and appropriate
NEUROLOGIC: Awake, alert and oriented. No focal neurological deficits speech clear. Cranial nerves II through XII intact. [id number] intact. Heel-to-toe walk with some imbalance, regular walking stable but patient feels she has to hold on to
keep her balance at times
Scores
Heart Score for Chest Pain Patients
STEMI patient?: Not applicable
Course
Orders/Labs/Results
Orders:
Orders
07/28/25 15:58
EKG [Electrocardiogram (*1)] Urgent
Reason for Study: Chest Pain
EKG- Treatment ONCE
07/28/25 16:13
Complete Blood Count/With Diff Urgent
Comprehensive Metabolic Panel Urgent
Troponin I Urgent
07/28/25 16:26
Ondansetron Injectable [Zofran] 4 mg .ROUTE .STK-MED ONE
07/28/25 18:21
Orthostatic VS- Treatment ONCE
07/28/25 19:16
CT Head W/o Iv Contrast Urgent
Comment:
Reason For Exam: feels off balance dizzy
07/28/25 19:23
Ondansetron HCl [Zofran] 4 mg PO NOW STA
Abnormal Lab Results
07/28/25
16:13
MCHC 32.0 L g/dL
(33.0-37.0)
Glucose 124 H mg/dl
(70-99)
Total Bilirubin 2.1 H mg/dl
(0.2-1.3)
ALT 36 H U/L
(0-35)
07/28/25 16:13
07/28/25 16:13
Vital Signs
Initial and Last Documented VS:
Initial Vital Signs
Temp Pulse Resp BP Pulse Ox
97.6 F 86 15 142/79 97
07/28/25 16:03 07/28/25 16:03 07/28/25 16:03 07/28/25 16:03 07/28/25 16:03
Last Documented Vital Signs
Temp Pulse Resp BP Pulse Ox
98.4 F 76 15 130/69 100
07/28/25 19:56 07/28/25 19:56 07/28/25 19:56 07/28/25 19:56 07/28/25 19:56
MDM/Problems Addressed
Differential Diagnosis Includes:
Medication side effects, brain tumor
MDM/Problems Addressed:
64 yo female with h/o psoriatic arthritis, lupus, rheumatoid arthritis, depression, presents for episodes of dizziness, feeling imbalanced, 'just not feeling well,'
Yesterday noon, moving clothes from washer to dryer, turned to her right, lost balance and fell onto pile of laundry, no injury. Fell 'off balance all day.' Slept well last night. Woke 11 a.m today felt well, got washed and felt better than
yesterday but still feels imbalanced and fatigued.
2 weeks ago had to stop her Methotrexate and Saphnelo infusion due to getting her Covid and Flu vaccines. She was started on Wellbutrin 5 days ago With all these med changes, she feels this may be contributing to her symptoms.
Denies recent head injury, denies headache or change in vision. Has felt nauseous, received Zofran by EMS en route. Has not vomited.
Afebrile, NAD
EKG NSR
CBC unremarkable
CMP unremarkable
Troponin WNL
7:15 PM:
All results discussed with patient and her . She states she is still feeling 'off balance.' Neuro exam is normal save for mild imbalance when she walks heel-to-toe. Will obtain head CT.
Head CT shows nothing acute
*Pulse Oximetry
SaO2: 100
Oxygen Mode of Delivery: Room air
Patient hypoxic: no
*Critical Care Note
Total Time (30-74mins, 75-104mins- exclusive of procedures): Not Applicable
ED Attending Note
-
Portions of this chart may have been created with voice recognition software.� Occasional wrong word or��sound alike� substitutions may have occurred due to the inherent limitations of voice recognition software.
Discharge Plan
Departure
Patient Disposition: Home (Routine Discharge)
Date of Disposition: 07/28/25
Time of Disposition: 20:41
Patient with high blood pressure during this ER visit?: No
Condition: Good
Discharge Problem:
Episode of dizziness
Instructions: Dizziness in adults - ED (DC)
Prescriptions:
No Action
cyanocobalamin (vitamin B-12) 1,000 MCG tablet
1,000 mcg PO DAILY
pyridoxine (vitamin B6) 50 MG tablet
50 mg PO DAILY
diltiazem HCl 60 MG tablet
60 mg PO BIDPRN PRN (Reason: fast heart rate)
vitamin E (dl, acetate) 400 UNITS capsule
400 units PO BID
famotidine 40 mg Tablet
40 mg PO DAILY
Cbd With Thc
1 gummy PO HS PRN (Reason: sleep)
albuterol sulfate 1 PUFF HFA aerosol inhaler
2 puff inhalation Q4HPRN PRN (Reason: SHORTNESS OF BREATH)
Rx Instructions:
WITH SPACER DEVICE
dexamethasone 0.1 % Drops,Suspension
1 applic OTIC (EAR) ONCE PRN (Reason: pain)
Refresh Plus
1 drp BOTH EYES BID
bisacodyl [Dulcolax (bisacodyl)] 10 mg Suppository
10 mg AL DAILY PRN (Reason: constipation)
docusate sodium 100 mg Capsule
100 mg PO BID Qty: 30 0RF
ondansetron HCl 4 mg tablet
4 mg PO Q6H PRN (Reason: nausea and vomiting) Qty: 30 0RF
colchicine [Colcrys] 0.6 MG tablet
0.6 mg PO DAILY PRN (Reason: pericarditis) Qty: 0 0RF
Humalog U-100 Insulin 100 unit/mL Cartridge
1 sliding scale dose SC DIRECTED PRN (Reason: diabetes) Qty: 0 0RF
Patient Comments:
Pt adjusts as needed
levothyroxine 100 mcg Tablet
100 mcg PO DAILY
omeprazole 20 mg Capsule,Delayed Release(Dr/Ec)
20 mg PO DAILY
pregabalin [Lyrica] 100 mg Capsule
100 mg PO TID
cholecalciferol (vitamin D3) [Vitamin D3] 125 mcg (5,000 unit) Tablet
125 mcg PO DAILY
Saphnelo 300 mg/2 mL (150 mg/mL) Solution
300 mg IV Q4W
Mounjaro 2.5 mg/0.5 mL Pen Injector
2.5 mg SC QWEEK
Rx Instructions:
for 4 weeks
prednisone 10 mg Tablet
10 mg PO DAILY
oxycodone 5 mg tablet
5 - 10 mg PO Q8HPRN PRN (Reason: moderate-severe breakthrough pain)
Rx Instructions:
1 tab for moderate, 2 if severe pain
diltiazem HCl 60 mg tablet
60 mg PO BID
Referrals:
Adriana Squires MD [Family Provider, Family Practice] - As needed
Activity Restrictions/Additional Instructions:
As we discussed, nothing worrisome in your workup here today.
Call your psychiatrist before you stop taking the Wellbutrin
The fact that you have not been feeling well may be due to the disruption of your typical medications over the past 2 weeks due to your COVID and flu vaccines.
Rest, drink plenty of fluids and if you are not feeling much better within the next week follow-up with your family doctor.
Interventions
Interventions:
*Risk Screen - Suicide Last Done: 07/28/25 16:03
*General Assessment Last Done: 07/28/25 16:03
*Neglect/Abuse Screening Last Done: 07/28/25 16:03
*ED- Fall Risk Assessment Last Done: 07/28/25 20:53
*ED COVID-19 Vaccine History Last Done: 07/28/25 16:03
*ED Influenza Vaccine History Last Done: 07/28/25 16:03
*Nursing Disposition Last Done: 07/28/25 20:53
ED- Cardiac Assessment Last Done: 07/28/25 19:51
Discharge Date and Time
Discharge Date/Time: 07/28/25 20:54
Print Language: BHUTANESE
[2025-07-28] MEDS: ZOFRAN 4 MG PO (19:50)
== END 2025-07-28 20:54 | disposition home or self-care (01) ==
LOC: EMR 15:56
PROVIDERS: EMERGENCY PHYSICIAN Emergency Medicine; FAMILY PHYSICIAN Family Medicine
DX: R42 Dizziness and giddiness (principal); E11.9 Type 2 diabetes mellitus without complications; J45.909 Unspecified asthma, uncomplicated; E03.9 Hypothyroidism, unspecified; K21.9 Gastro-esophageal reflux disease without esophagitis; F32.A Depression, unspecified; M32.9 Systemic lupus erythematosus, unspecified; L40.50 Arthropathic psoriasis, unspecified; M06.9 Rheumatoid arthritis, unspecified; Z79.85 Long-term (current) use of injectable non-insulin antidiabetic drugs; Z84.89 Family history of other specified conditions
CPT/HCPCS: 99284; 70450; 80053; 84484; 85025; 93005

== ENCOUNTER → 2025-08-13 10:26 | Outpatient (REF) | payer MEDICARE, BC, SELFPAY | LOC: HWRAD 10:26 | PROVIDERS: ATTENDING PHYSICIAN Obstetrics & Gynecology; FAMILY PHYSICIAN Family Medicine | DX: N95.0 Postmenopausal bleeding (principal) | CPT/HCPCS: 76830; 76856 ==

== ENCOUNTER → 2025-08-23 09:24 | Outpatient (REF) | payer MEDICARE, BC, SELFPAY ==
[2025-08-23 11:14] LABS: ALT (SGPT) 29 U/L (0-35); AST (SGOT) 27 U/L (14-36); Albumin 4.7 g/dl (3.5-5.0); Alkaline Phosphatase 61 U/L (38-126); Blood Urea Nitrogen 8 mg/dl (7-17); Calcium 9.6 mg/dl (8.4-10.2); Carbon Dioxide 27 mmol/L (22-30); Chloride 101 mmol/L (98-107); Glucose 116 mg/dl (70-99); HDL Cholesterol 46 mg/dl; LDL Cholesterol, Calculated 177 mg/dl; Potassium 4.1 mmol/L (3.5-5.1); Sodium 138 mmol/L (135-145); Total Protein 7.3 g/dl (6.3-8.2); Very Low Density Lipoprotein 36 mg/dl (0-30); eGFR > 60.00
[2025-08-23 11:31] LABS: Glycohemoglobin (HgbA1c) 6.3 % (4.0-5.9)
[2025-08-23 12:05] LABS: TSH 0.90 uIU/ml (0.47-4.68)
== END ==
LOC: REG 09:24
PROVIDERS: ATTENDING PHYSICIAN Internal Medicine Endocrinology, Diabetes & Metabolism; FAMILY PHYSICIAN Family Medicine
DX: E78.2 Mixed hyperlipidemia (principal); E11.65 Type 2 diabetes mellitus with hyperglycemia; E06.3 Autoimmune thyroiditis; R61 Generalized hyperhidrosis
CPT/HCPCS: 36415; 80053; 80061; 83036; 84443